=== PATIENT | male | born 1980 | race Caucasian/White ===

== ENCOUNTER 2021-08-22 18:06 | Emergency (ER) | payer BC, SELFPAY ==
[2021-08-22] MEDS ORDERED: Ondansetron ODT 4 MG TAB ONE (18:47)
[2021-08-22] MEDS ORDERED: Ventolin HFA Inhaler 60 PUFF INHALER ONE (18:47)
[2021-08-22] MEDS ORDERED: Ketorolac Tromethamine 30 MG/ML VIAL ONE (19:03)
== END 2021-08-22 20:38 | disposition home or self-care (01) ==
LOC: CSHERS 18:06
DX: U07.1 COVID-19 (principal); I10 Essential (primary) hypertension
CPT/HCPCS: 71045; 96372; J1885; Q0162